=== PATIENT | male | born 1955 | race Two or more races ===

== ENCOUNTER 2025-07-08 12:22 | Emergency (ER) | payer OTHER ==
[~2025-07-08] VITALS: Ht 182.9 cm; Wt 79.8 kg
[2025-07-08 12:29] VITALS: BP 161/78; O2SAT 98
[2025-07-08] MEDS ORDERED: ROSUVASTATIN CA10 MG (12:46)
[2025-07-08] MEDS ORDERED: DAILY VITAMIN1 EAC2 (12:47)
[2025-07-08] MEDS ORDERED: ACETAMINOPHEN 500 MG GEL..CAP PO ONE (13:00)
[2025-07-08] MEDS ORDERED: FAMOTIDINE/PF 20 MG in 0.9 % SODIUM CHLORIDE 8 ML IV PUSH ONE (13:00)
[2025-07-08] MEDS ORDERED: 0.9 % SODIUM CHLORIDE 1,000 ML IV SCH (13:00)
[2025-07-08 14:05] LABS: BASO % 0.7 % (0.1-1.2); EOS # 0.16 (0.04-0.54); EOS % 2.7 % (0.7-7.0); LYMPH # 1.27 (1.18-3.74); LYMPH % 21.5 % (19.3-53.1); MEAN PLATELET VOLUME 10.70 fl (9.4-12.4); MONO # 0.64 (0.24-0.82); MONO % 10.8 % (4.7-12.5); NEUT # 3.78 (1.56-6.13); NEUT % 64.1 % (34.0-71.1); RED CELL DISTRIBUTION WIDTH 12.7 % (11.6-14.4)
[2025-07-08 14:28] LABS: INR 0.98
[2025-07-08 14:40] LABS: ALT/SGPT 48.0 U/L (12-78); AST/SGOT 28.0 U/L (15-37); BILIRUBIN TOTAL 1.55 mg/dL (0.3-1.2); BUN CREA RATIO 19.0 (7.0-25.0); CREATININE SERUM 1.02 mg/dL (0.70-1.30); GFR 71.99; GLOBULINA 2.9 G/DL (2.4-3.5); GLUCOSE FASTING 81.0 mg/dL (65-100); OSMOLALITY SERUM 283.0 MOSM/KG (275-295)
== END 2025-07-08 17:42 | disposition home or self-care (01) ==
LOC: ER 12:22
PROVIDERS: General Practice
DX: T75.89XA Other specified effects of external causes, initial encounter (principal); Z91.013 Allergy to seafood